=== PATIENT | female | born 2000 | race Caucasian/White ===

== ENCOUNTER 2018-10-03 03:25 | Emergency (ER) | payer OTHER ==
[~2018-10-03] VITALS: Ht 165.1 cm; Wt 59.0 kg
[2018-10-03 03:30] VITALS: BP 116/84
[2018-10-03] MEDS: ACETAMINOPHEN EXTRA STRENGTH 500 MG TAB PO ONE (03:57)
[2018-10-03] MEDS: DEXAMETHASONE 10 MG/ML VIAL PO ONE (04:04)
[2018-10-03] MEDS: KETOROLAC 30 MG/ML VIAL IM ONE (04:05)
[2018-10-03 04:34] VITALS: BP 100/48
== END 2018-10-03 04:34 | disposition home or self-care (01) ==
LOC: MED 03:25
DX: J02.9 Acute pharyngitis, unspecified (principal)
CPT/HCPCS: 96372; 99283; J1100; J1885